=== PATIENT | female | born 1950 | race Caucasian/White ===

== ENCOUNTER 2021-12-11 09:45 | Inpatient (IN) | payer MEDICARE, OTHER ==
[~2021-12-11] VITALS: Ht 154.9 cm; Wt 59.9 kg
[2021-12-11 14:09] VITALS: BP 121/96
[2021-12-11] MEDS ORDERED: magnesium hydroxide 30ml (MOM) UD suspension PO PRN (14:15)
[2021-12-11] MEDS ORDERED: acetaminophen 325mg tablet PO PRN ×2 (14:15)
[2021-12-11] MEDS ORDERED: loperamide 2mg capsule PO PRN (14:15)
[2021-12-11] MEDS ORDERED: mag hydrox/Alum hydrox/simeth 30ml oral suspension PO PRN (14:15)
[2021-12-11] MEDS ORDERED: DULO-31 PO (14:41)
[2021-12-11] MEDS ORDERED: BUPR300T53 PO (14:41)
--- NOTE | 2021-12-11 14:53 | NUR ---
ADMIT NOTE: Pt arrived on a gurney via ambulance from [facility] in [place] at 1330. Wheeled onto unit accompanied by security and PCT. Pt is here on a 5150 for DTS. Pt is s/p suicide via OD on antidepressant medications which required intubation. She has a long history of depression with multiple past suicide attempts and psychiatric hospitalizations.
--- NOTE | 2021-12-11 16:27 | NUR ---
Nursing Progress Note: Legal hold: 5150 Expires 12/14/21 Client on involuntary status for DTS. Report received from nurse with use of SBAR. Why are they here: Patient was admitted to [facility] at 1330. Pt was BIB EMS from [facility] in [facility]. Pt was found in her home with an empty SSRI bottle next to her, with a near lethal suicide attempt. Pt has a history of multiple previous SA. Pts daughter reports her mother has always been depressed for as long as she can remember. Pt was intubated for five days. Assessment What has happened this shift: Patient was cooperative with admitting process. Pt was feeling dizzy at admit and required a SBA with her shower. Pt r/t this to the long ride from [place]. Pt presents with a depressed affect. Pt is A&O x 4. Pt required no assistive devices prior to this last hospitalization. Pts gait is increasingly becoming stronger, but currently requires FWW. Pt reports no medical history. Pt currently denies suicidal thoughts. Pt reports recent trigger was feeling lonely Its the loneliness. Pts two years ago and she moved from [place] where she lived for thirty-five years to [place] about a year ago. Pts daughter lives there and she bought a home on the same [address]. Pt stated I found that being by myself, I couldnt handle. If I am with people I am okay. Pt has no social support in [place] and all my friends and son are back home. Pt reports her depression worsened when her became sick. Pt states he was sick for 10 years renal failure/dialysis. Pt reports her mother and sister both had unsuccessful SA. S/I, H/I: Currently denies. A/VH: Denies both. Sleep:[] ADL's: Independent/ showered at admit. Group attendance:[] Were meds taken:[] Any med S/E[] Mental Status Exam Appearance:[] Eye contact: Good Behavior: Cooperative, calm, depressed. Speech: Clear, normal rate/rhythm. Mood: Depressed Affect: Congruent with medication. Thought process: Linear. Thought Content:[] Cognition:[] Insight:[] Judgment:[] Interventions PRN's used:[] Therapeutic interventions:[] Restraints/seclusion/emergency medication:[] Justification of Continued Inpatient Treatment:[]
[2021-12-11 19:52] VITALS: BP 94/58
[2021-12-11] MEDS ORDERED: duloxetine 30mg CAPSULE.DR PO SCH (20:00)
[2021-12-12 07:45] VITALS: BP 115/64
[2021-12-12 07:52] LABS: CHOL/HDL RATIO 4.6 (0.00-4.99); CHOLESTEROL 222 MG/DL (0-200); HDL CHOLESTEROL 48 MG/DL (35-60); LDL CHOLESTEROL 138 MG/DL (50-100); TRIGLYCERIDES 152 MG/DL (20-135)
[2021-12-12] MEDS ORDERED: buPROPion SR 150mg tablet PO SCH (08:00)
[2021-12-12] MEDS: duloxetine 30mg CAPSULE.DR PO SCH ×2 (08:12→20:00)
[2021-12-12] MEDS ORDERED: calcium carbonate 500mg chew tablet PO ONE (13:45)
--- NOTE | 2021-12-12 17:39 | NUR ---
Nursing Progress Note Legal hold: 5150 Expires 12/14/21 Client on involuntary status for DTS Report received from nurse with use of SBAR Why are they here: Patient was admitted to [facility] at 1330. Pt was BIB EMS from [facility] in [facility]. Pt was found in her home with an empty SSRI bottle next to her, with a near lethal suicide attempt. Pt has a history of multiple previous SA. Pts daughter reports her mother has always been depressed for as long as she can remember. Pt was intubated for five days. Assessment What has happened this shift: Received Pt in bed sleeping w/o distress at the beginning of the shift. Pt woke and was cooperative with vitals and AM assessments. Pt took AM meds w/o issue and ate meals well. Pt is pleasant and cooperative and isolated to her room most of the day. She sat by the window reading and looking out the window. Pt is knowledgeable about her meds and agrees that changes may could help. Pt She was seen by hospitalist today and Tums were ordered. She received Tylenol for BRADFORD. Pt continues to be depressed and grieving. Pt dealing with issues of grief, loss, loneliness and transition. S/I, H/I: Denies A/VH: Denies Sleep: None this shift ADL's: Independent Group attendance: Yes Were meds taken: Yes Any med S/E: None Mental Status Exam Appearance: Well groomed in scrubs Eye contact: Good Behavior: Cooperative, calm, depressed Speech: Clear, normal rate/rhythm Mood: Depressed Affect: Constricted Thought process: Linear Thought Content: Loneliness Cognition: A & O X4 Insight: Fair Judgment: Fair Interventions PRN's used: Tylenol for BRADFORD Therapeutic interventions: : Provided safe and therapeutic environment, 1:1 assessment with therapeutic communication, encouraged participation on the unit and in group therapy, and monitored Q15 minute safety checks. Restraints/seclusion/emergency medication: NA Justification of Continued Inpatient Treatment: Requires interruption of current crisis in a safe and therapeutic environment.
[2021-12-12] MEDS: calcium carbonate 500mg chew tablet PO SCH (18:00)
[2021-12-12 19:54] VITALS: BP 99/53
[2021-12-12] MEDS ORDERED: traZODone 50mg tablet PO ONE (21:40)
--- NOTE | 2021-12-13 05:17 | NUR ---
Nursing Progress Note Legal hold: 5150 Expires 12/14/21 Client on involuntary status for DTS Report received from ARMANDO Borges with use of SBAR. Why are they here: Patient was admitted to [facility] at 1330. Pt was BIB EMS from [facility] in [facility]. Pt was found in her home with an empty SSRI bottle next to her, with a near lethal suicide attempt. Pt has a history of multiple previous SA. Pts daughter reports her mother has always been depressed for as long as she can remember. Pt was intubated for five days. Assessment What has happened this shift: This patient isolated in her room. She reads a book, she is polite and quiet. Patient denies S/I, H/I, or any hallucinations. Patient did eat her dinner. She is medication compliant. S/I, H/I: Denies. A/VH: Denies. Sleep: None this shift ADL's: Independent Group attendance: No group on nights. Were meds taken: Yes, patient is medication compliant. Any med S/E: None Mental Status Exam Appearance: Clean wearing unit attire. Eye contact: Direct. Behavior: Cooperative, calm, depressed. Speech: Clear, normal rate, rhythm, and tone. Mood: Depressed. Affect: Constricted. Thought process: Linear. Thought Content: Feeling lonely. Cognition: Alert and Oriented X4. Insight: Fair. Judgment: Fair. Interventions PRN's used: Trazadone. Therapeutic interventions: : Provided safe and therapeutic environment, 1:1 assessment with therapeutic communication, encouraged participation on the unit and in group therapy, and monitored Q15 minute safety checks. Restraints/seclusion/emergency medication: NA Justification of Continued Inpatient Treatment: Requires interruption of current crisis in a safe and therapeutic environment.
[2021-12-13 08:00] VITALS: BP 110/68
[2021-12-13] MEDS ORDERED: buPROPion SR 150mg tablet PO ONE (08:15)
[2021-12-13] MEDS ORDERED: duloxetine 30mg CAPSULE.DR PO ONE (08:15)
--- NOTE | 2021-12-13 08:39 | NUR ---
PHONE CALL W/DAUGHTER Janell's daughter, Juliana (ph# [phone]) called to provide information. She reported Janell has had a long history of depression, suicide attempts, and hospitalizations over the years. She reported this was her third attempt in the last 3 years. She reported her father (Janell's ) 3 years ago. She noted Janell attempted suicide shortly before the . Juliana reported Janell has lived with her in the past and then moved to [facility]. Janell bought a house near Juliana around May 2021 in [place]. Juliana reported Janell really struggles with motivation to care for herself and is resistant to care (seeing a therapist, Dr, etc). Juliana reported recently Janell stopped caring for her ADL's which she usually engages in when she is less depressed. Juliana reported Janell cannot stay with her upon discharge. Juliana reported she has a 9 y/o daughter and she does not want the daughter to find Janell . Juliana noted that she thought Janell was going to after this last overdose (she was intubated for 5 days). Janell asked about ECT or ketamine tx. Informed her that we do not offer those treatments here, however, could make referrals. YOUSIF Lim
[2021-12-13] MEDS: calcium carbonate 500mg chew tablet PO SCH ×3 (08:56→17:52)
[2021-12-13] MEDS: duloxetine 30mg CAPSULE.DR PO SCH (13:06)
--- NOTE | 2021-12-13 14:17 | NUR ---
Nursing Progress Note: Legal hold: 5150 Client on involuntary status for DTS Report received from nurse with use of SBAR: ARMANDO Pringle Why are they here: Patient was admitted to [facility] at 1330. Pt was BIB EMS from [facility] in [facility]. Pt was found in her home with an empty SSRI bottle next to her, with a near lethal suicide attempt. Pt has a history of multiple previous SA. Pts daughter reports her mother has always been depressed for as long as she can remember. Pt was intubated for five days. Assessment What has happened this shift: Received pt. sleeping in bed at the beginning of the shift, she was awoken by staff and required direction in order to attend breakfast in the Group Room. Afterwards, pt. retreated to the Recreation Room where she sat throughout much of the morning watching TV. Pt. appears withdrawn and is not observed to be interacting with others. 1:1 was completed, pt. presents as cooperative, pleasant, guarded, and withdrawn. However, when questioned by this creative writer regarding S/I pt. becomes slightly tearful, but denies any current S/I. Pt. remains guarded throughout the assessment, and responds minimally to direct questions. She appears to be minimizing any mental health s/s. Pt. denies any A/V/BRADFORD, and no delusional statements were made. Pt. remained up sitting in the Recreation Room throughout much of the shift, she was not observed to be interacting with others. Pt. did attend group with encouragement from staff. S/I, H/I: Denies A/VH: Denies, and pt. does not appear to be internally preoccupied Sleep: Sleep hours are 6.25 and pt. reports she slept well last night once she was able to fall asleep. ADL's: Pt. requires some encouragement, and uses FWW at times r/t generalized weakness Group attendance: Yes with encouragement Were meds taken: Yes Any med S/E: None Mental Status Exam Appearance: Neat and appropriately dressed, however appears tired Eye contact: Good Behavior: Cooperative, tearful, guarded, and withdrawn Speech: Some latency of speech, soft, responds minimally to direct questions Mood: Guarded Affect: Blunted Thought process: Linear Thought Content: Ongoing depression Cognition: A&O X4 Insight: poor Judgment: Poor Interventions PRN's used: None Therapeutic interventions: Introduced self and established rapport, maintained a safe and supportive environment, provided clear and simple instructions, ensured contract for safety, encouraged participation on the unit, provided active listening and positive encouragement, maintained fall precautions and Q 15min safety checks. Restraints/seclusion/emergency medication: N/A Justification of Continued Inpatient Treatment: Per Dr. Lindo, pt. continues to require a safe and supportive environment and medication adjustments. She would be a high-risk discharge.
--- NOTE | 2021-12-13 14:54 | NUR ---
PSYCHOSOCIAL ASSESSSMENT Pt is a 71 y/o female who is here on a 5150 for DTS. She arrived via ambulance from [facility] in [place]. Pt is s/p suicide via OD on antidepressant medications which required intubation. She has a long history of depression with multiple past suicide attempts and psychiatric hospitalizations. Pt. moved to [place] six months ago to be closer to her daughter. Her two years ago and she was feeling lonely in her home in [place] by herself. Pt. reported that she bought a house in [place] sight unseen just viewing pictures on the internet. She regrets doing this now as the house needs a lot of work and it depresses her. Her new home is five minutes away from her daughter, son in law and grand-daughter whom she spends time with at least once a week. Her son lives in [place]. Pt. reported she regrets moving to [place] as losing her and then transitioning to a new community has been very difficult. She missed her neighbors and friends in [place]. She reported that she has struggled with depression since she was 26 years of age and reported she had a tough childhood with alcoholic parents. She reported her first depressive episode was when she and her moved away from where she grew up and moved to [place] when she was 26. She found that transition very difficult. Pt. plans to return to her home in [place]. She reported she would like to get connected to resources there such as a counselor and Outpt. Behavioral health. She also reported she would be interested in volunteering as a way to keep busy and find some purpose. She scaled her depression today as a 4-5 on a scale of 0-10 reporting that she feels better when she is around people. MSE: Pt. was cooperative with meeting with this Head Banquet Waitress. She reported feeling dizzy and stumbled a bit while walking. Her demeanor was calm. She was alert and oriented X 4. Her thought content and thought process were WNL. Her mood appeared depressive with a restricted affect. She was open about her situation and did show some insight into her mental health issues. Ricarda Barrientos LCSW
[2021-12-13 20:00] VITALS: BP 117/68
[2021-12-13] MEDS ORDERED: traZODone 50mg tablet PO PRN (20:00)
--- NOTE | 2021-12-14 00:20 | NUR ---
Nursing Progress Note Legal hold: 5150 Expires 12/14/21 Client on involuntary status for DTS Report received from ARMANDO Borges with use of SBAR. Why are they here: Patient was admitted to [facility] at 1330. Pt was BIB EMS from [facility] in [facility]. Pt was found in her home with an empty SSRI bottle next to her, with a near lethal suicide attempt. Pt has a history of multiple previous SA. Pts daughter reports her mother has always been depressed for as long as she can remember. Pt was intubated for five days. Assessment What has happened this shift: The patient was out of her room following shift change. Patient is observed socializing with others and watching a movie in the recreation room. The patient tells this policy writer sales "it helps to be around people." The patient looks improved from previous shift. She is not isolating. The patient denies S/I, H/I, or any hallucinations. She presents as upbeat, she denies feeling depressed. S/I, H/I: Denies. A/VH: Denies. Sleep: None this shift ADL's: Independent Group attendance: No group on nights. Were meds taken: Yes, patient is medication compliant. Any med S/E: None noted or observed. Mental Status Exam Appearance: Clean wearing unit attire. Eye contact: Direct. Behavior: Cooperative, calm, she looks relaxed. Speech: Clear, normal rate, rhythm, and tone. Mood: Upbeat. Affect: Pleasant. Thought process: Linear. Thought Content: Feeling lonely. Cognition: Alert and Oriented X4. Insight: Fair. Judgment: Fair. Interventions PRN's used: Trazadone. Therapeutic interventions: : Provided safe and therapeutic environment, 1:1 assessment with therapeutic communication, encouraged participation on the unit and in group therapy, and monitored Q15 minute safety checks. Restraints/seclusion/emergency medication: NA Justification of Continued Inpatient Treatment: Requires interruption of current crisis in a safe and therapeutic environment.
[2021-12-14 07:11] VITALS: BP 107/62
[2021-12-14] MEDS: duloxetine 30mg CAPSULE.DR PO SCH ×2 (08:48→12:55)
[2021-12-14] MEDS: calcium carbonate 500mg chew tablet PO SCH ×3 (08:49→18:00)
[2021-12-14] MEDS: buPROPion SR 150mg tablet PO SCH (08:49)
[2021-12-14 10:40] LABS: HEMOGLOBIN A1C 5.3 % (4.5-6.2)
--- NOTE | 2021-12-14 14:10 | NUR ---
Nursing Progress Note: Legal hold: 5150 Client on involuntary status for DTS Report received from nurse with use of SBAR: ARMANDO Pringle Why are they here: Patient was admitted to [facility] at 1330. Pt was BIB EMS from [facility] in [facility]. Pt was found in her home with an empty SSRI bottle next to her, with a near lethal suicide attempt. Pt has a history of multiple previous SA. Pts daughter reports her mother has always been depressed for as long as she can remember. Pt was intubated for five days. Assessment What has happened this shift: Received pt. sleeping in bed at the beginning of the shift, she was again awoken by staff to attend breakfast in the Group Room. Pt. continues to appear withdrawn and guarded, responding minimally to direct questions. She again denies any S/I or other mental health s/s, and appears to be minimizing. Pt. states in a dismissive manner, "I'm fine." She does not exhibit any tearfulness as previously. Pt. changes the subject and requests to shower, she is able to complete this task independently with set-up help only. Pt. sat in her room reading throughout much of the morning, but did later attend morning group. While ambulating to group, pt. reported a short episode of dizziness, however stated, "I think I got up too fast." No further episodes were reported, will continue to monitor. Pt. was encouraged by this feature writer to use her walker, however she refused, fall precautions remain in place. Pt. was more visible on the unit in the afternoon and was observed to be interacting minimally with others in the Group Room. S/I, H/I: Denies A/VH: Denies, and pt. does not appear to be internally preoccupied Sleep: Sleep hours are 6 ADL's: Pt. requires some encouragement, and uses FWW at times r/t generalized weakness Group attendance: Yes Were meds taken: Yes Any med S/E: Pt. reports a short episode of dizziness X1, however states, "I think I got up too fast." No further episodes were reported, will continue to monitor. Mental Status Exam Appearance: Neat and appropriately dressed, showered this shift Eye contact: Good Behavior: Cooperative, guarded, and withdrawn Speech: Soft, responds minimally to direct questions Mood: Guarded Affect: Blunted Thought process: Linear Thought Content: Ongoing depression Cognition: A&O X4 Insight: poor Judgment: Poor Interventions PRN's used: None Therapeutic interventions: Maintained a safe and supportive environment, provided clear and simple instructions, ensured contract for safety, encouraged participation on the unit, provided active listening and positive encouragement, maintained fall precautions and Q 15min safety checks. Restraints/seclusion/emergency medication: N/A Justification of Continued Inpatient Treatment: Per Dr. Lindo, pt. continues to require a safe and supportive environment and medication adjustments. She would be a high-risk discharge.
[2021-12-14 20:00] VITALS: BP 118/60
--- NOTE | 2021-12-14 23:23 | NUR ---
Nursing Progress Note Legal hold: 5150 Expires 12/14/21 Client on involuntary status for DTS Report received from ARMANDO Borges with use of SBAR. Why are they here: Patient was admitted to [facility] at 1330. Pt was BIB EMS from [facility] in [facility]. Pt was found in her home with an empty SSRI bottle next to her, with a near lethal suicide attempt. Pt has a history of multiple previous SA. Pts daughter reports her mother has always been depressed for as long as she can remember. Pt was intubated for five days. Assessment What has happened this shift: This patient is out of her room following shift change. She is well oriented, some depression remains. The patient tells this radio script writer that her depression is gradually improving. She states she is enjoying social contact with peers, she watches movies. The patient is medication compliant. She denies S/I, H/I, or any hallucinations. Around 2300 hours the patient experienced urine incontinence. She was cleaned and given new scrubs. S/I, H/I: Denies. A/VH: Denies. Sleep: None this shift ADL's: Independent Group attendance: No group on nights. Were meds taken: Yes, patient is medication compliant. Any med S/E: None noted or observed. Mental Status Exam Appearance: Clean wearing unit attire. Eye contact: Direct. Behavior: Cooperative, calm, she looks relaxed. Speech: Clear, normal rate, rhythm, and tone. Mood: Upbeat. Affect: Pleasant. Thought process: Linear. Thought Content: Feeling lonely. Cognition: Alert and Oriented X4. Insight: Fair. Judgment: Fair. Interventions PRN's used: Trazadone. Therapeutic interventions: : Provided safe and therapeutic environment, 1:1 assessment with therapeutic communication, encouraged participation on the unit and in group therapy, and monitored Q15 minute safety checks. Restraints/seclusion/emergency medication: N/A Justification of Continued Inpatient Treatment: Requires interruption of current crisis in a safe and therapeutic environment.
[2021-12-15 08:00] VITALS: BP 109/56
[2021-12-15] MEDS: duloxetine 30mg CAPSULE.DR PO SCH ×2 (08:21→13:19)
[2021-12-15] MEDS: buPROPion SR 150mg tablet PO SCH (08:21)
[2021-12-15] MEDS: calcium carbonate 500mg chew tablet PO SCH ×3 (08:21→18:13)
--- NOTE | 2021-12-15 12:42 | NUR ---
Initial: Pt admitted s/p overdose per EMR. Currently on Regular diet w/ avg intake 52% x 11 meals partially meeting needs. Pt could benefit from smoothies BID for additional calories/protein. LBM 12/13 w/ PRN bowel care available. Will continue to monitor. Recs: 1. Continue Regular diet as tolerated 2. Smoothies BIDBD 3. Bowel care per rx 4. Weekly wts Addendum: 12/15/21 at [address] Amended: Links added.
--- NOTE | 2021-12-15 16:52 | NUR ---
Nursing Progress Note Legal hold: Voluntary Client on involuntary status for DTS Report received from ARMANDO Leigh with use of SBAR. Why are they here: Patient was admitted to [facility] at 1330. Pt was BIB EMS from [facility] in [facility]. Pt was found in her home with an empty SSRI bottle next to her, with a near lethal suicide attempt. Pt has a history of multiple previous SA. Pts daughter reports her mother has always been depressed for as long as she can remember. Pt was intubated for five days. Assessment What has happened this shift: Received patient while she was sitting in the Community Room eating breakfast. Administered patients medications and completed 1:1 Patient Assessment & Interview completed. Patient reports she is feeling better each day. Denies SI and states I do not have a plan. Patient has spent much of the day reading a book close to the window in her room. Patient went to the Community Room for dining of breakfast and dinner, and participated in snack times this morning and this afternoon. Patient reports she did not sleep well as her roommate "snored all night long." Patient ambulated in the hallway then returns back to her room to relax and read. No complaints throughout today and patient thanks staff graciously for any task that is completed by them. Will continue to follow up with the patient throughout the rest of today. S/I, H/I: Denies. A/VH: Denies. Sleep: 7.0 hours of sleep ADL's: Independent Group attendance: No group on nights. Were meds taken: Yes, without hesitation Any med S/E: None noted or observed. Mental Status Exam Appearance: Medium Length vergara hair with glasses in own personal clothing. Eye contact: Direct. Behavior: Cooperative & Calm Speech: Clear, normal rate, rhythm, and tone. Mood: Comfortable Affect: Calm Thought process: Linear. Thought Content: Linear Cognition: Alert and Oriented X4. Insight: Fair. Judgment: Fair. Interventions PRN's used: None. Therapeutic interventions: : Provided safe and therapeutic environment, 1:1 assessment with therapeutic communication, encouraged participation on the unit and in group therapy, and monitored Q15 minute safety checks. Restraints/seclusion/emergency medication: N/A Justification of Continued Inpatient Treatment: Requires interruption of current crisis in a safe and therapeutic environment.
[2021-12-15 19:51] VITALS: BP 120/66
--- NOTE | 2021-12-16 01:48 | NUR ---
Nursing Progress Note Legal hold: Voluntary Client admitted on involuntary status for DTS Report received from ARMANDO Borges with use of SBAR. Why are they here: Patient was admitted to [facility] at 1330. Pt was BIB EMS from [facility] in [facility]. Pt was found in her home with an empty SSRI bottle next to her, with a near lethal suicide attempt. Pt has a history of multiple previous SA. Pts daughter reports her mother has always been depressed for as long as she can remember. Pt was intubated for five days. Assessment What has happened this shift: Pt up in rec room watching a movie at start of shift. She is pleasant and cooperative Denies SI. o medications due on this shift. Came to group room for snack stayed up watching TV before going to bed. Pt sleeping at this time. S/I, H/I: Denies. A/VH: Denies. Sleep: sleeping at this time ADL's: Independent Group attendance: NA Were meds taken: Yes, without hesitation Any med S/E: None noted or observed. Mental Status Exam Appearance: Medium Length vergara hair with glasses in own personal clothing. Eye contact: Direct. Behavior: Cooperative & Calm Speech: Clear, normal rate, rhythm, and tone. Mood: Comfortable Affect: Calm Thought process: Linear. Thought Content: Linear Cognition: Alert and Oriented X4. Insight: Fair. Judgment: Fair. Interventions PRN's used: None. Therapeutic interventions: : Provided safe and therapeutic environment, 1:1 assessment with therapeutic communication, encouraged participation on the unit and in group therapy, and monitored Q15 minute safety checks. Restraints/seclusion/emergency medication: N/A Justification of Continued Inpatient Treatment: Requires interruption of current crisis in a safe and therapeutic environment.
[2021-12-16 08:00] VITALS: BP 131/66
[2021-12-16] MEDS: duloxetine 30mg CAPSULE.DR PO SCH ×2 (08:20→13:00)
[2021-12-16] MEDS: buPROPion SR 150mg tablet PO SCH (08:21)
[2021-12-16] MEDS: calcium carbonate 500mg chew tablet PO SCH ×3 (08:21→18:06)
--- NOTE | 2021-12-16 17:10 | NUR ---
Nursing Progress Note Legal hold: Voluntary Client on involuntary status for DTS Report received from ARMANDO Singletary with use of SBAR. Why are they here: Patient was admitted to [facility] at 1330. Pt was BIB EMS from [facility] in [facility]. Pt was found in her home with an empty SSRI bottle next to her, with a near lethal suicide attempt. Pt has a history of multiple previous SA. Pts daughter reports her mother has always been depressed for as long as she can remember. Pt was intubated for five days. Assessment What has happened this shift: Received patient while she was awake in her room this morning. Patient states she is feeling good today, but I have had a bit of diarrhea. Informed patient that she has Imodium ordered and I will give it to her with her morning medications. Patient Assessment and Interview completed. Patient ate her meals in her room and spent most of the day in her room reading books. Patient pleasant at all times. Patient states the Imodium worked well. S/I, H/I: Denies. A/VH: Denies. Sleep: 7.50 hours of sleep ADL's: Independent Group attendance: No group meeting today. Were meds taken: Yes, without hesitation Any med S/E: None noted or observed. Mental Status Exam Appearance: Medium Length vergara hair with glasses in own personal clothing. Eye contact: Direct. Behavior: Cooperative & Calm Speech: Clear, normal rate, rhythm, and tone. Mood: Feeling Good Today. Affect: Calm Thought process: Linear. Thought Content: Linear Cognition: Alert and Oriented X4. Insight: Fair. Judgment: Fair. Interventions PRN's used: Imodiium Therapeutic interventions: : Provided safe and therapeutic environment, 1:1 assessment with therapeutic communication, encouraged participation on the unit and in group therapy, and monitored Q15 minute safety checks. Restraints/seclusion/emergency medication: N/A Justification of Continued Inpatient Treatment: Requires interruption of current crisis in a safe and therapeutic environment.
[2021-12-16 20:36] VITALS: BP 109/69
--- NOTE | 2021-12-17 01:56 | NUR ---
Nursing Progress Note: Legal hold: Voluntary Client on voluntary status for DTS Report received from ARMANDO Borges with use of SBAR. Why are they here: Patient was admitted to [facility] at 1330. Pt was BIB EMS from [facility] in [facility]. Pt was found in her home with an empty SSRI bottle next to her, with a near lethal suicide attempt. Pt has a history of multiple previous SA. Pts daughter reports her mother has always been depressed for as long as she can remember. Pt was intubated for five days. Assessment What has happened this shift: Patient seen relaxing on her bed at shift change. She is lying there reading a book, and appears comfortable. Patient next moved to the community room and watched TV with some peers. She denies all MH symptoms, but states she is still depressed, "but it is improving some." Patient has no scheduled HS medications, and laid down to read after snack time. She is observed sleeping peacefully. S/I, H/I: Denies. A/VH: Denies. Sleep: See sleep assessment ADL's: Independent Group attendance: NA Were meds taken: Yes. Any med S/E: None reported or observed. Mental Status Exam Appearance: Medium Length vergara hair with glasses in own personal clothing. Eye contact: Direct. Behavior: Cooperative & Calm, isolative Speech: Clear, normal rate, rhythm, and tone. Mood: Depressed. Affect: Calm Thought process: Linear. Thought Content: Discharge Cognition: Alert and Oriented X4. Insight: Fair. Judgment: Fair. Interventions PRN's used: None. Therapeutic interventions: : Provided safe and therapeutic environment, 1:1 assessment with therapeutic communication, encouraged participation on the unit and in group therapy, and monitored Q15 minute safety checks. Restraints/seclusion/emergency medication: N/A Justification of Continued Inpatient Treatment: Requires interruption of current crisis in a safe and therapeutic environment.
[2021-12-17 07:57] VITALS: BP 107/60
[2021-12-17] MEDS: duloxetine 30mg CAPSULE.DR PO SCH ×2 (08:36→13:17)
[2021-12-17] MEDS: buPROPion SR 150mg tablet PO SCH (08:36)
[2021-12-17] MEDS: calcium carbonate 500mg chew tablet PO SCH ×3 (08:36→18:18)
--- NOTE | 2021-12-17 17:24 | NUR ---
Nursing Progress Note Legal hold: Voluntary Client on involuntary status for DTS Report received from ARMANDO Singletary with use of SBAR. Why are they here: Patient was admitted to [facility] at 1330. Pt was BIB EMS from [facility] in [facility]. Pt was found in her home with an empty SSRI bottle next to her, with a near lethal suicide attempt. Pt has a history of multiple previous SA. Pts daughter reports her mother has always been depressed for as long as she can remember. Pt was intubated for five days. Assessment What has happened this shift: Patient was asleep at change of shift and up reading before breakfast. Patient is very pleasant. Patient denies suicidal/homicidal ideation. Patient denies depression. Patient denies audio/visual hallucinations. Patient states she is doing well. RN asked patient why she doesn't even feel depressed when she just had such a serious attempt on her life. Patient states she doesn't even remember taking the medication. Patient explains that her recently and she joined a grief group but it was a Zoom meeting which is not the same as socializing with peers. RN encouraged patient to join a group or a jain and get friends. Patient states she regrets selling her home in [place] and moving up here. Patient got tearful when she spoke about the pain she caused her family. Patient agreed that she needs face to face socialization. S/I, H/I: Denies. A/VH: Denies. Sleep: No naps today ADL's: Independent Group attendance: No Group today due to Covid on the unit. Were meds taken: Yes Any med S/E: None noted or observed. Mental Status Exam Appearance: Medium Length vergara hair with glasses in own personal clothing. Eye contact: Direct. Behavior: Cooperative & Calm Speech: Clear, normal rate, rhythm, and tone. Mood: Euthymic Affect: Calm Thought process: Linear. Thought Content: Linear Cognition: Alert and Oriented X4. Insight: Fair. Judgment: Fair. Interventions PRN's used: None Therapeutic interventions: : Provided safe and therapeutic environment, 1:1 assessment with therapeutic communication, encouraged participation on the unit and in group therapy, and monitored Q15 minute safety checks. Restraints/seclusion/emergency medication: N/A Justification of Continued Inpatient Treatment: Requires interruption of current crisis in a safe and therapeutic environment.
[2021-12-17 19:14] VITALS: BP 105/56
--- NOTE | 2021-12-18 01:34 | NUR ---
Nursing Progress Note: Legal hold: Voluntary Report received from Osvaldo Borges primer charger Why are they here: Patient was admitted to [facility] at 1330. Pt was BIB EMS from [facility] in [facility]. Pt was found in her home with an empty SSRI bottle next to her, with a near lethal suicide attempt. Pt has a history of multiple previous SA. Pts daughter reports her mother has always been depressed for as long as she can remember. Pt was intubated for five days. Assessment What has happened this shift: One to one with the patient to assess for severity of depressive symptoms and self harm risk. She presented as calm, pleasant and cooperative during the evening assessment. Grooming is adequate. She was alert and oriented. She stated that she feels she is doing better than on admit. She denied having any side effects of medications. She stated that she was tired of being in her room but that her concentration and focus were good and that she had almost finished a book that she had been reading. Her replies to questions were logical and congruent to what was asked. She denies active or passive suicidal thoughts. She stated that the protective services social worker was going to speak with her daughter about possibly going home this weekend. She stated that she has been following up with a PA in her hometown but it was felt that she needed additional services on discharge. Psychotic symptoms were denied and were not evident during the evening assessment. She reports that she did not sleep well last evening because her roommate was snoring but she did appear to fall asleep early in the night and did not require PRN Trazodone. Her insight and judgement is intact. She is treatment compliant. Justification of Continued Inpatient Treatment: Although the patient is denying that she is currently suicidal additional services will need to be put in place prior to discharge to provide support and treatment in her home town.
[2021-12-18 08:00] VITALS: BP 94/50
[2021-12-18] MEDS: buPROPion SR 150mg tablet PO SCH (08:22)
[2021-12-18] MEDS: duloxetine 30mg CAPSULE.DR PO SCH ×2 (08:22→12:39)
[2021-12-18] MEDS: calcium carbonate 500mg chew tablet PO SCH ×3 (08:23→18:17)
--- NOTE | 2021-12-18 13:22 | NUR ---
DISCHARGE PLANNING Met with Janell to discuss discharge plan. She reported she wants to go home this weekend. She denied any current SI or HI and reported she is in a better place. She reported she wants to leave on the weekend when her son-in-law, Nakia, can pick her up. Discussed follow up and suggested we look into getting her a provider through [facility]. She was agreeable to this. Called [facility] and scheduled her an appt for 12/27/21 via [employer]. They will also offer her counseling. Informed Janell keno writer will call her daughter to discuss discharge plan. Called and spoke to Janell's daughter, Juliana (ph# [phone]). Juliana had quite a few questions and concerns. She is concerned Janell is going to return home and just go back to not doing anything, not caring for herself, and will attempt suicide again. Informed her Janell is talking about taking classes or volunteering. Informed her of her upcoming appt with [employer]. Informed her what medications she is currently taking. Juliana reported she has not spoken to her mother since she has gotten here and doesn't have much to say to her. Juliana suggested Janell should call Nakia to see if he will pick her up vs just expecting him to do so. Eyelet Punch Operator will give Janell Yee's phone number ([phone]) so she can call and ask for him to pick her up and drive her back home to [place]. YOUSIF Lim
--- NOTE | 2021-12-18 17:25 | NUR ---
Nursing Progress Note Legal hold: Voluntary Client on involuntary status for DTS Report received from ARMANDO Singletary with use of SBAR. Why are they here: Patient was admitted to [facility] at 1330. Pt was BIB EMS from [facility] in [facility]. Pt was found in her home with an empty SSRI bottle next to her, with a near lethal suicide attempt. Pt has a history of multiple previous SA. Pts daughter reports her mother has always been depressed for as long as she can remember. Pt was intubated for five days. Assessment What has happened this shift: Patient was asleep at change of shift and up for breakfast. Patient reads on her free time and was observed watching T.V. in the Rec Room. Patient is pleasant and agreeable. Patient states she slept well last night and did not need the ear plugs. Patient has finished reading a book and is now on her second book. Patient denies suicidal/homicidal ideation. Patient also denies depression. Patient is thinking she will volunteer and hopefully make some friends. Patient is calm and cooperative. Patient did take a nap this afternoon. S/I, H/I: Denies. A/VH: Denies. Sleep: Short nap in late afternoon ADL's: Independent Group attendance: No Group today due to Covid on the unit. Were meds taken: Yes Any med S/E: None noted or observed. Mental Status Exam Appearance: Medium Length vergara hair with glasses in own personal clothing. Eye contact: Direct. Behavior: Cooperative & Calm Speech: Clear, normal rate, rhythm, and tone. Mood: Euthymic Affect: Calm Thought process: Linear. Thought Content: Linear Cognition: Alert and Oriented X4. Insight: Fair. Judgment: Fair. Interventions PRN's used: None Therapeutic interventions: : Provided safe and therapeutic environment, 1:1 assessment with therapeutic communication, encouraged participation on the unit and in group therapy, and monitored Q15 minute safety checks. Restraints/seclusion/emergency medication: N/A Justification of Continued Inpatient Treatment: Requires interruption of current crisis in a safe and therapeutic environment.
[2021-12-18 19:38] VITALS: BP 119/68
--- NOTE | 2021-12-19 00:04 | NUR ---
Nursing Progress Note: Legal hold: Voluntary Report received from Osvaldo Truong hotel houseman Why are they here: Patient was admitted to [facility] at 1330. Pt was BIB EMS from [facility] in [facility]. Pt was found in her home with an empty SSRI bottle next to her, with a near lethal suicide attempt. Pt has a history of multiple previous SA. Pts daughter reports her mother has always been depressed for as long as she can remember. Pt was intubated for five days. Assessment What has happened this shift: One to one with the patient to assess for severity of depressive symptoms and self harm risk. She was fairly isolative to her room. She was dressed and adequately groomed. She is aware of medication changes and that she has Trazodone available to her if she had difficulty sleeping. She takes no HS medications and did not request the Trazodone. When asked how her mood was she stated that it was "fine" She denies active or passive suicidal thoughts. She stated that she had her family and her dog as reasons that she wanted to live. She acknowledged that she has had difficulty adjusting to relocating to [place] from [facility] and that she had been isolating at home. She gave very vague examples of changes she was going to make at home to increase her socialization. She contacted her son in law via phone to ask for a ride back to [place] after discharge. She has been medication and treatment compliant. She is alert and oriented. She reports sleeping well. Medication side effects were denied. She is attending to her ADLs independently. Justification of Continued Inpatient Treatment: Medication adjustments are continuing. The patient will be discharged once discharge plans can be cemented in place to prevent relapse and an increase in depressive symptoms.
[2021-12-19 07:40] VITALS: BP 116/59
[2021-12-19] MEDS: duloxetine 30mg CAPSULE.DR PO SCH ×2 (07:51→12:32)
[2021-12-19] MEDS: calcium carbonate 500mg chew tablet PO SCH ×3 (07:55→17:24)
--- NOTE | 2021-12-19 11:22 | NUR ---
Called Wilbert with [facility] (# [phone]) to request transportation for tomorrow. Janell's family has decided to not come pick her up upon discharge. Wilbert reported he will call writer producer back to confirm. YOUSIF Lim
[2021-12-19] MEDS ORDERED: TRAZ-251 PO (15:14)
[2021-12-19] MEDS ORDERED: DULO30CA52 PO ×2 (15:14)
--- NOTE | 2021-12-19 17:29 | NUR ---
Nursing Progress Note Legal hold: Voluntary Client on involuntary status for DTS Report received from ARMANDO Singletary with use of SBAR. Why are they here: Patient was admitted to [facility] at 1330. Pt was BIB EMS from [facility] in [facility]. Pt was found in her home with an empty SSRI bottle next to her, with a near lethal suicide attempt. Pt has a history of multiple previous SA. Pts daughter reports her mother has always been depressed for as long as she can remember. Pt was intubated for five days. Assessment What has happened this shift: Patient was asleep at change of shift and up soon after. Patient reads in her room and occasional will come out to watch T.V. Patient denies SI/HI and denies A/V hallucinations. Patient called her son in law who stated he can't picker feeder patient due to patient's daughter having increased seizures. Patient stated her daughter is upset with her and patient doesn't blame her. Patient states that she has attempted suicide so many times and this upsets her daughter. When patient's daughter is upset she has increased seizures. Patient states that when she finds out when she will arrive in [facility] she will call her daughter to ask her to open her home for her since she doesn't have a munoz. Patient stated she has decided to volunteer and possibly get in a [employer] group. Patient also stated she is going to try to find a good pentecostalism and make friends there. Patient does appear to have a good plan. Patient hopes to leave tomorrow. S/I, H/I: Denies. A/VH: Denies. Sleep: No naps ADL's: Independent Group attendance: No Group today due to Covid on the unit. Were meds taken: Yes Any med S/E: None noted or observed. Mental Status Exam Appearance: Medium Length vergara hair with glasses in green scrubs Eye contact: Direct. Behavior: Cooperative & Calm Speech: Clear, normal rate, rhythm, and tone. Mood: Euthymic Affect: Calm Thought process: Linear. Thought Content: Linear Cognition: Alert and Oriented X4. Insight: Fair. Judgment: Fair. Interventions PRN's used: None Therapeutic interventions: : Provided safe and therapeutic environment, 1:1 assessment with therapeutic communication, encouraged participation on the unit and in group therapy, and monitored Q15 minute safety checks. Restraints/seclusion/emergency medication: N/A Justification of Continued Inpatient Treatment: Requires interruption of current crisis in a safe and therapeutic environment.
[2021-12-19 19:49] VITALS: BP 102/59
--- NOTE | 2021-12-20 04:17 | NUR ---
Nursing Progress Note Legal hold: VOL Client on voluntary status Report received from ARMANDO Truong with use of SBAR. Why are they here: Patient was admitted to [facility] at 1330. Pt was BIB EMS from [facility] in [facility]. Pt was found in her home with an empty SSRI bottle next to her, with a near lethal suicide attempt. Pt has a history of multiple previous SA. Pts daughter reports her mother has always been depressed for as long as she can remember. Pt was intubated for five days. Assessment What has happened this shift: Patient observed watching TV in the community room at the beginning of shift. Pleasant and cooperative with care; no scheduled meds this shift. Denies SI, HI, A/VH; does not appear to be responding to IS and no apparent delusions reported. Patient ate HS snack in the community room and shortly after retired bed; observed sleeping and does not appear to be having difficulty. S/I, H/I: Denies A/VH: Denies Sleep: Refer to sleep assessment ADL's: Independent Group attendance: NA Were meds taken: None scheduled this shift Any med S/E: None noted or observed Mental Status Exam Appearance: Neat and appropriately dressed in green unit attire Eye contact: Good Behavior: Pleasant and cooperative, watching TV Speech: Clear, normal rate/rhythm Mood: Euthymic Affect: Calm Thought process: Linear Thought Content: Meeting needs Cognition: Alert and Oriented X4. Insight: Fair. Judgment: Fair. Interventions PRN's used: None Therapeutic interventions: : Provided safe and therapeutic environment, 1:1 assessment with therapeutic communication, encouraged participation on the unit and in group therapy, and monitored Q15 minute safety checks. Restraints/seclusion/emergency medication: NA Justification of Continued Inpatient Treatment: Requires interruption of current crisis in a safe and therapeutic environment.
[2021-12-20 06:58] VITALS: BP 126/62
[2021-12-20 08:00] VITALS: BP 126/62
[2021-12-20] MEDS: calcium carbonate 500mg chew tablet PO SCH ×2 (08:15→11:31)
[2021-12-20] MEDS: duloxetine 30mg CAPSULE.DR PO SCH ×2 (08:15→11:31)
--- NOTE | 2021-12-20 09:11 | NUR ---
INSERT MOLDING OPERATOR 11-12 TODAY [facility] reported transport is on it's way to cigar packer and picker Janell. They should be here 11-12 today. Left message for Janell's daughter, Juliana, ([phone]), requesting a call back to inform her that Janell is discharging today. YOUSIF Lim
--- NOTE | 2021-12-20 12:05 | NUR ---
Discharge Note: Pt. discharged from the unit to vehicle which will be transporting her back to [facility] accompanied by [employer]. Pt's belongings were inventoried and retuned to her by [employer]. This blog writer reviewed pt's medications and discharge instructions with her and she reported understanding. Pt. is able to contract for safety. She was sent with her home medications and will be picking up prescriptions for new medications at her preferred pharmacy. No nicotine replacement needed.
== END 2021-12-20 12:22 | disposition home or self-care (01) | DRG 885 ==
LOC: ADULT MH 13:27
PROVIDERS: ADMIT Psychiatry & Neurology Psychiatry; ATTEND Psychiatry & Neurology Psychiatry
DX: F33.2 Major depressive disorder, recurrent severe without psychotic features (principal); T43.292A Poisoning by other antidepressants, intentional self-harm, initial encounter; E11.9 Type 2 diabetes mellitus without complications; K21.9 Gastro-esophageal reflux disease without esophagitis; R51.9 Headache, unspecified; Z96.643 Presence of artificial hip joint, bilateral; Z83.3 Family history of diabetes mellitus; Z98.891 History of uterine scar from previous surgery; Y92.098 Other place in other non-institutional residence as the place of occurrence of the external cause; Z79.899 Other long term (current) drug therapy
CPT/HCPCS: 36415; 80061; 83036; 87081